=== PATIENT | female | born 1945 | race Caucasian/White ===

== ENCOUNTER 2017-02-14 15:32 | Observation (INO) | payer MEDICARE ==
--- NOTE | 2017-02-14 16:21 | ED PDOC ---
HPI: Hypertension/Hypotension Time Seen by Provider: 02/14/17 15:52 Chief Complaint (Nursing): High Blood Pressure Chief Complaint (Provider): High blood pressure History Per: Patient History/Exam Limitations: no limitations Onset/Duration Of Symptoms: Days Current Symptoms Are (Timing): Still Present Additional Complaint(s): 71-year-old female, PMHx includes Diabetes, Hypertension (non compliant w/ Lisinopril) and Hypercholesterolemia, presents to the emergency department accompanied by daughter with complaints of high blood pressure. Daughter states that patient was in clinic today for a routine f/u appointment, where she was found to be hypertensive, resulting in her being sent to the ED for evaluation. In ED, daughter reports that patient has not taken any blood pressure medication in a few months. Patient currently complaining of lateral left low neck pain. Pt notes an episode of chest pain yesterday, that spontaneously resolved. No numbness/weakness, nausea/vomiting, shortness of breath, dizziness , urinary complaints, incontinence, or any other associated symptoms. No other complaints at this time. Past Medical History Reviewed: Historical Data, Nursing Documentation, Vital Signs Vital Signs: Last Vital Signs Temp 98.7 F 02/14/17 15:37 Pulse 86 02/14/17 15:37 Resp 16 02/14/17 15:37 BP 206/109 H 02/14/17 15:37 Pulse Ox 99 02/14/17 15:37 - Family History Family History: States: Unknown Family Hx - Home Medications Home Medications: Ambulatory Orders Medication Instructions Recorded Lisinopril/Hydrochlorothiazide 1 tab PO DAILY 02/14/17 [Lisinopril-Hydrochlorothiazide 25 mg-20 mg] Rosuvastatin Calcium [Crestor] 20 mg PO DAILY 02/14/17 metFORMIN [glucOPHAGE] 500 mg PO BID 02/14/17 - Allergies Allergies/Adverse Reactions: Allergies Allergy/AdvReac Type Severity Reaction Status Date / Time No Known Allergies Allergy Verified 02/14/17 15:37 Review of Systems ROS Statement: Except As Marked, All Systems Reviewed And Found Negative Constitutional: Negative for: Fever, Chills Cardiovascular: Positive for: Chest Pain. Negative for: Palpitations Respiratory: Negative for: Shortness of Breath Gastrointestinal: Negative for: Nausea, Vomiting Genitourinary Female: Negative for: Dysuria, Frequency Musculoskeletal: Positive for: Neck Pain. Negative for: Back Pain Skin: Negative for: Rash Neurological: Negative for: Weakness, Numbness, Headache, Dizziness Physical Exam - Reviewed Nursing Documentation Reviewed: Yes Vital Signs Reviewed: Yes - Physical Exam Appears: Positive for: Non-toxic, No Acute Distress Head Exam: Positive for: ATRAUMATIC, NORMOCEPHALIC Skin: Positive for: Warm, Dry. Negative for: Rash Eye Exam: Positive for: Normal appearance Neck: Positive for: Painless ROM Respiratory: Positive for: Normal Breath Sounds. Negative for: Accessory Muscle Use, Respiratory Distress Gastrointestinal/Abdominal: Positive for: Soft. Negative for: Tenderness Extremity: Positive for: Normal ROM Neurologic/Psych: Positive for: Alert, Oriented - ECG O2 Sat by Pulse Oximetry: 99 Pulse Ox Interpretation: Normal - Progress ED Course And Treament: 1635: Stable. Dr. Melvin to fu on labs and imaging. Medical Decision Making Medical Decision Making: Plan * EKG * CMP, Trop I * CBC, PTT, PT * Chest X-Ray * Nitroglycerin * Reassess and Disposition Scribe Attestation: Documented by Luz Olson, acting as a scribe for Dominic Vann MD. Provider Scribe Attestation: All medical record entries made by the Scribe were at my direction and personally dictated by me. I have reviewed the chart and agree that the record accurately reflects my personal performance of the history, physical exam, medical decision making, and the department course for this patient. I have also personally directed, reviewed, and agree with the discharge instructions and disposition. Disposition - Clinical Impression Clinical Impression: Hypertension, Chest pain - Patient ED Disposition Is Patient to be Admitted: Transfer of Care - Disposition Disposition: Transfer of Care Disposition Time: 16:35 Condition: STABLE Patient Signed Over To: Say Melvin
[2017-02-14 16:32] LABS: BASO # 0.1 K/uL (0.0-0.2); BASO % 0.8 % (0.0-2.0); EOS # 0.6 K/uL (0.0-0.7); EOS % 7.4 % (0.0-4.0); HEMATOCRIT 40.5 % (34.0-47.0); LYMPH % 24.7 % (20.0-40.0); MEAN CORPUSCULAR HEMOGLOBIN 26.9 pg (27.0-31.0); MEAN CORPUSCULAR HGB CONC 32.1 g/dL (33.0-37.0); MONO # 0.5 K/uL (0.0-0.8); MONO % 6.5 % (0.0-10.0); NEUT % 60.6 % (50.0-75.0); NRBC % 0.1 % (0.0-0.0); RED CELL DISTRIBUTION WIDTH 13.4 % (11.5-14.5); WHITE BLOOD COUNT 8.2 K/uL (4.8-10.8)
[2017-02-14 16:43] LABS: ALB/GLOB RATIO 1.1 (1.0-2.1); ALKALINE PHOSPHATASE 107 U/L (38-126); ALT/SGPT 18 U/L (9-52); AST/SGOT 24 U/L (14-36); BILIRUBIN,TOTAL 1.4 mg/dl (0.2-1.3); BLOOD UREA NITROGEN 24 mg/dl (7-17); CALCIUM 10.7 mg/dL (8.4-10.2); CARBON DIOXIDE 22 mmol/L (22-30); CHLORIDE 111 mmol/L (98-107); GFR AFRICAN-AMERICAN 36; GLUCOSE,RANDOM 107 mg/dL (65-105); POTASSIUM 4.3 MMOL/L (3.6-5.0); SODIUM 148 mmol/l (132-148); TOTAL PROTEIN 8.1 G/DL (6.3-8.2)
[2017-02-14 17:25] LABS: PARTIAL THROMBOPLASTIN TIME 28.2 SECONDS (23.3-32.5)
--- NOTE | 2017-02-14 18:50 | ED PDOC ---
- Laboratory Results Result Diagrams: 02/14/17 16:20 02/14/17 16:20 - ECG O2 Sat by Pulse Oximetry: 98 Pulse Ox Interpretation: Normal - Progress ED Course And Treament: will admit to tele obs Re-evaluation Time: 18:48 Condition: Improved Disposition Counseled Patient/Family Regarding: Studies Performed, Diagnosis, Need For Followup - Clinical Impression Clinical Impression: Hypertension, Chest pain - POA Present On Arrival: None - Disposition Disposition: Hospitalized as Observation Patient Disposition Time: 18:50 Condition: STABLE
[2017-02-14] MEDS ORDERED: Labetalol 5mg/ml (4ml) IVP STA (19:21)
--- NOTE | 2017-02-14 19:33 | CP.PCM.HP ---
History of Present Illness - History of Present Illness History of Present Illness: 71 yo F w PMHx of HTN, HLD, DM, and CKD is admitted for hypertensive urgency within the setting of CKD Stage 3B. She was seen at the [facility] yesterday and found to have a BP of 190/100. Pt denies any current headaches, vision changes, chest pain, sob, dyspnea, cough, or abdominal pain. She does, however, state one episode of chest pain yesterday that is associated w lying down in the evening following a large meal. Pt was accompanied by daughter, who claimed that the patient was complaining of dizziness when ambulating in the clinic earlier and recently in the ED. Otherwise, pt denies f/c/n/v/d/c, hematuria, dysuria, recent sick contacts, or other myalgias. PMD: [facility] Daughter: Glo Duncan [phone] PMHx: HTN, DM, HLD, CKD, Depression PSHx: Cholecystectomy, Breast Nodule NKDA Home Meds (Noncompliant): Rosuvastatin 20, Lisinopril-HCTZ 20-25, Metformin 500 BID FHx: Noncontributory SHx: Denies etoh, illicit drugs, cigarettes ED Course: -CBC -CMP -Troponin STAT x1 -PT/INR/PTT -Nitro SL STAT x1 -CXR -EKG Present on Admission - Present on Admission Any Indicators Present on Admission: No History of DVT/PE: No History of Uncontrolled Diabetes: No Urinary Catheter: No Decubitus Ulcer Present: No Review of Systems - Review of Systems Review of Systems: see HPI Past Patient History - Past Social History Smoking Status: Never Smoked - CARDIAC Hx Hypertension: Yes - ENDOCRINE/METABOLIC Hx Diabetes Insipidus: Yes - PSYCHIATRIC Hx Substance Use: No - SURGICAL HISTORY Hx Cholecystectomy: Yes Meds Allergies/Adverse Reactions: Allergies Allergy/AdvReac Type Severity Reaction Status Date / Time No Known Allergies Allergy Verified 02/14/17 15:37 Physical Exam - Constitutional Appears: Non-toxic, No Acute Distress - Head Exam Head Exam: ATRAUMATIC, NORMAL INSPECTION - Eye Exam Eye Exam: EOMI Pupil Exam: PERRL - ENT Exam ENT Exam: Mucous Membranes Dry - Neck Exam Neck exam: Positive for: Full Rom, Normal Inspection. Negative for: Tenderness - Respiratory Exam Respiratory Exam: Clear to Auscultation Bilateral, NORMAL BREATHING PATTERN. absent: Rhonchi, Wheezes - Cardiovascular Exam Cardiovascular Exam: REGULAR RHYTHM Additional comments: no chest tenderness to palpation - GI/Abdominal Exam GI & Abdominal Exam: Normal Bowel Sounds, Soft. absent: Tenderness - Extremities Exam Extremities exam: Positive for: normal inspection. Negative for: calf tenderness - Neurological Exam Neurological exam: Alert, CN II-XII Intact, Oriented x3 - Psychiatric Exam Psychiatric exam: Anxious, Normal Mood - Skin Skin Exam: Dry, Normal Color, Warm Results - Vital Signs Recent Vital Signs: Last Vital Signs Temp 98.7 F 02/14/17 15:37 Pulse 75 02/14/17 17:44 Resp 20 02/14/17 17:44 BP 160/76 H 02/14/17 17:44 Pulse Ox 98 02/14/17 18:50 - Labs Result Diagrams: 02/14/17 16:20 02/14/17 16:20 Assessment & Plan - Assessment and Plan (Free Text) Plan: 71 yo F w PMHx of HTN, HLD, DM, and CKD is admitted for hypertensive urgency within the setting of CKD Stage 3B 1) HTN Urgency in setting of CKD -Improving, BPs currently in 160s/70s -Troponin Neg x2 -EKG: NSR, no acute abnormalities -Cardiology aware and onboard -Losartan-HCTZ 20-25 PO Daily ---CrCl 35.86; cutoff for above medication is below 30 -Labetolol 20mg IVP STAT x1 -Clonidine 0.1mg PO BID -ASA 81mg PO Daily -Tylenol 650mg PO Q6H PRN mild pain -Morphine 1mg IVP Q6h PRN moderate pain -f/u EKG -f/u Vitals -f/u Cardiac Echo -f/u Cardio recommendations 2) h/o CKD -Currently Stage 3B -GFR 36 -- BUN/Cr 24/1.7 -- CrCl 35.86 -Nephrology aware and onboard -f/u Nephro recommendations 3) DM -Controlled, pt states home readings are 90-120 -Lispro Sliding Scale ACHS -f/u FS ACHS 4) HLD -Rosuvastatin 20mg PO Daily 5) DVT Prophylaxis -SCDs -Will consider additional treatment if hospital stay is extended or indications warrant such therapy
[2017-02-14] MEDS ORDERED: Labetalol 5mg/ml (4ml) ONE (19:36)
[2017-02-15] MEDS ORDERED: Pneumococcal 23-Valent Vaccine IM ONE (06:00)
[2017-02-15] MEDS: Insulin Lispro (humaLOG) 100 Units/ml Inj SC SCH ×3 (07:00→17:09)
[2017-02-15 08:25] VITALS: TEMP 97.7
[2017-02-15 08:37] LABS: HEMATOCRIT 37.9 % (34.0-47.0); MEAN CELL VOLUME 83.4 fl (81.0-99.0); MEAN CORPUSCULAR HEMOGLOBIN 27.1 pg (27.0-31.0); MEAN CORPUSCULAR HGB CONC 32.5 g/dL (33.0-37.0); RED CELL DISTRIBUTION WIDTH 13.1 % (11.5-14.5); WHITE BLOOD COUNT 6.8 K/uL (4.8-10.8)
[2017-02-15] MEDS ORDERED: Patient's Own Med (Lisinopril/Hydrochlorothiazide [Lisinopril-Hctz 20-25 Mg Tab] 1 TAB) PO SCH (09:00)
--- NOTE | 2017-02-15 10:15 | CP.PCM.CON ---
History of Present Illness - History of Present Illness History of Present Illness: Patient is a 71 years old presented to the emergency room with uncontrolled hypertension and headache. Patient is not giving good history what medication might is a long history whether she has history of chronic kidney disease and she stated she was not taking medication for the blood pressure. Also noted that she has hypercalcemia on the routine blood work Her past medical history related to hypertension and diabetes mellitus And no good follow-up as outpatient apparently Social history not contributory Review of Systems - Constitutional Constitutional: As Per HPI, Headache - EENT Eyes: As Per HPI - Cardiovascular Cardiovascular: absent: Chest Pain, Chest Pain at Rest, Pedal Edema - Respiratory Respiratory: absent: Cough, Dyspnea - Gastrointestinal Gastrointestinal: absent: Abdominal Pain, Vomiting - Genitourinary Genitourinary: Nocturia - Musculoskeletal Musculoskeletal: Muscle Weakness - Neurological Neurological: As Per HPI Past Patient History - Past Medical History & Family History Past Medical History?: Yes - Past Social History Smoking Status: Never Smoked - CARDIAC Hx Hypertension: Yes - PULMONARY Hx Respiratory Disorders: No - NEUROLOGICAL Hx Neurological Disorder: No - HEENT Hx HEENT Problems: No - RENAL Hx Chronic Kidney Disease: Yes Other/Comment: Chronic Kidney Disease - ENDOCRINE/METABOLIC Hx Diabetes Insipidus: Yes - HEMATOLOGICAL/ONCOLOGICAL Hx Blood Disorders: No Hx AIDS: No Hx Human Immunodeficiency Virus (HIV): No - INTEGUMENTARY Hx Dermatological Problems: No - MUSCULOSKELETAL/RHEUMATOLOGICAL Hx Musculoskeletal Disorders: No Hx Falls: No - GASTROINTESTINAL Hx Gastrointestinal Disorders: No - GENITOURINARY/GYNECOLOGICAL Hx Genitourinary Disorders: No - PSYCHIATRIC Hx Substance Use: No - SURGICAL HISTORY Hx Cholecystectomy: Yes - ANESTHESIA Hx Anesthesia: Yes Hx Anesthesia Reactions: No Meds Home Medications: Home Medication List Medication Instructions Recorded Confirmed Type GlipiZIDE [Glucotrol] 5 mg PO DAILY #30 tab 02/15/17 Rx Lisinopril/Hydrochlorothiazide 1 tab PO DAILY #30 tablet 02/15/17 Rx [Lisinopril-Hctz 20-25 mg Tab] Rosuvastatin Calcium [Crestor] 20 mg PO DAILY #30 tab 02/15/17 Rx amLODIPine [Norvasc] 5 mg PO DAILY #30 tab 02/15/17 Rx Allergies/Adverse Reactions: Allergies Allergy/AdvReac Type Severity Reaction Status Date / Time No Known Allergies Allergy Verified 02/14/17 15:37 - Medications Medications: Current Medications Acetaminophen (Tylenol 325mg Tab) 650 mg PO Q6 PRN PRN Reason: Pain, Mild (1-3) Aspirin (Aspirin Chewable) 81 mg PO DAILY [facility] Last Admin: 02/15/17 08:23 Dose: 81 mg Atorvastatin Calcium (Lipitor) 40 mg PO DAILY [facility] Last Admin: 02/15/17 08:24 Dose: 40 mg Clonidine HCl (Catapres) 0.1 mg PO BID [facility] Last Admin: 02/15/17 08:23 Dose: 0.1 mg Hydrochlorothiazide (Hydrodiuril) 25 mg PO DAILY [facility] Last Admin: 02/15/17 08:24 Dose: 25 mg Insulin Human Lispro (Humalog) 0 units SC ACHS [facility] PRN Reason: Protocol Last Admin: 02/15/17 07:00 Dose: Not Given Lisinopril (Zestril) 20 mg PO DAILY [facility] Last Admin: 02/15/17 08:25 Dose: 20 mg Morphine Sulfate (Morphine) 1 mg IVP Q6 PRN PRN Reason: Pain, moderate (4-7) Physical Exam - Constitutional Appears: No Acute Distress - Eye Exam Eye Exam: absent: Nystagmus, Periorbital tenderness - ENT Exam ENT Exam: Mucous Membranes Moist - Neck Exam Neck exam: Negative for: Lymphadenopathy - Respiratory Exam Respiratory Exam: NORMAL BREATHING PATTERN. absent: Chest Wall Tenderness - Cardiovascular Exam Cardiovascular Exam: REGULAR RHYTHM. absent: Rubs - GI/Abdominal Exam GI & Abdominal Exam: Normal Bowel Sounds. absent: Distended - Extremities Exam Extremities exam: Negative for: calf tenderness - Back Exam Back exam: absent: CVA tenderness (L), CVA tenderness (R) - Neurological Exam Neurological exam: Alert Results - Vital Signs Recent Vital Signs: Last Vital Signs Temp 97.7 F 02/15/17 08:24 Pulse 60 02/15/17 09:00 Resp 20 02/15/17 08:24 BP 133/76 02/15/17 08:25 Pulse Ox 99 02/15/17 08:24 - Labs Result Diagrams: 02/15/17 08:18 02/14/17 16:20 Labs: Laboratory Results - last 24 hr 02/15/17 02/15/17 02/15/17 01:00 05:32 08:18 WBC 6.8 RBC 4.55 Hgb 12.3 Hct 37.9 MCV 83.4 MCH 27.1 MCHC 32.5 L RDW 13.1 Plt Count 202 POC Glucose (mg/dL) 115 H Troponin I < 0.0120 < 0.0120 Assessment & Plan (1) Chronic kidney disease, stage III (moderate) Assessment and Plan: Patient appears to have CK D stage III from the history. Admitted with high blood pressure she was not taking her medication. At the present patient started on clonidine lisinopril and hydrochlorothiazide and the blood pressure is very well controlled. So continue the same. Hypercalcemia I'm not sure of this patient taken any vitamin D or calcium supplement as outpatient however we will order to do PTH and phosphorus. Also note urinalysis yet we will order urine and if there is a protein and microalbuminuria we have to do quantitative. Status: Acute
--- NOTE | 2017-02-15 10:18 | RAD ---
HISTORY: Unspecified pain COMPARISON: No prior. FINDINGS: LUNGS: No active pulmonary disease. PLEURA: No significant pleural effusion identified, no pneumothorax apparent. CARDIOVASCULAR: No radiographic findings to suggest acute or significant cardiovascular disease. OSSEOUS STRUCTURES: No significant abnormalities. VISUALIZED UPPER ABDOMEN: Normal. OTHER FINDINGS: None. IMPRESSION: No active disease.
[2017-02-15 11:02] LABS: CALCIUM 10.3 mg/dL (8.4-10.2); POTASSIUM 4.6 MMOL/L (3.6-5.0)
--- NOTE | 2017-02-15 12:31 | CON ---
DATE: 02/15/2017 HISTORY OF PRESENT ILLNESS: The patient is a 71-year-old female who has a history of hypert ension, otherwise no known cardiac history according to the patient. The patient also has a history of diabetes mellitus and hyperlipidemia. She was brought in to the hospital by her daughter after th e patient was found to be uncontrollably hypertensive in a clinic. The patient did report 1 episode of chest pain that was nonradiating and not associated with shortness of breath. The patient cannot describe the character of her chest pain. SOCIAL HISTORY: Nonsmoker, nondrinker. MEDICATIONS: Aspirin 81 mg once a day, clonidine 0.1 mg twice a day, hydrochlorothiazide 25 mg once a day, Lipitor 40 mg once a day and Zestril 20 mg once a day. PAST MEDICAL HISTORY: Hypertension, diabetes mellitus, hyperlipidemia and cholecystectomy. PHYSICAL EXAMINATION: GENERAL: The patient is an elderly female who does not appear to be in any distress. VITAL SIGNS: Blood pressure 133/76, heart rate 60, temperature 97.7, respirations 20. HEENT: Normocephalic. NECK: No JVD. CHEST: Clear. HEART: S1, S2 regular. ABDOMEN: Soft. EXTREMITIES: No edema. LABORATORY DATA: CBC: WBC 6.8, hemoglobin 12.3, hematocrit 37.9, platelet count 202,000. PT, PTT a re within normal limits. SMA-7: Sodium 147, potassium 4.6, chloride 110, CO2 23, glucose 120, BUN 2 6, creatinine 1.7. Calcium is elevated at 10.3. Two sets of troponins are negative. EKG revealed n ormal sinus rhythm. ASSESSMENT: 1. Uncontrolled hypertension. 2. Chest pain, myocardial infarction is ruled out. 3. Diabetes mellitus. 4. Hyperlipidemia by history. RECOMMENDATIONS: Continue current aspirin, clonidine, hydrochlorothiazide, Lipitor and Zestril. I d id order an echocardiogram. aDgoberto Oliva MD cc: [id number] TT: 02/15/2017 12:30:13 Confirmation # [id number] Dictation # [id number]
[2017-02-15 15:45] VITALS: BP 124/69; PULSE 60; RESP 18; O2SAT 99
--- NOTE | 2017-02-15 16:43 | CP.PCM.DIS ---
Provider - Provider Date of Admission: 02/14/17 18:36 Attending physician: Robert Winter MD Primary care physician: Cora Leavitt MD Time Spent in preparation of Discharge (in minutes): 30 Diagnosis - Discharge Diagnosis (1) Hypertensive urgency Status: Acute Hospital Course - Lab Results Lab Results: Most Recent Lab Values WBC 6.8 K/uL (4.8-10.8) 02/15/17 08:18 RBC 4.55 Mil/uL (3.80-5.20) 02/15/17 08:18 Hgb 12.3 g/dL (12.0-16.0) 02/15/17 08:18 Hct 37.9 % (34.0-47.0) 02/15/17 08:18 MCV 83.4 fl (81.0-99.0) 02/15/17 08:18 MCH 27.1 pg (27.0-31.0) 02/15/17 08:18 MCHC 32.5 g/dL (33.0-37.0) L 02/15/17 08:18 RDW 13.1 % (11.5-14.5) 02/15/17 08:18 Plt Count 202 K/uL (130-400) 02/15/17 08:18 MPV 8.0 fl (7.2-11.7) 02/14/17 16:20 Neut % (Auto) 60.6 % (50.0-75.0) 02/14/17 16:20 Lymph % (Auto) 24.7 % (20.0-40.0) 02/14/17 16:20 [place] % (Auto) 6.5 % (0.0-10.0) 02/14/17 16:20 Eos % (Auto) 7.4 % (0.0-4.0) H 02/14/17 16:20 Baso % (Auto) 0.8 % (0.0-2.0) 02/14/17 16:20 Neut # 5.0 K/uL (1.8-7.0) 02/14/17 16:20 Lymph # 2.0 K/uL (1.0-4.3) 02/14/17 16:20 [place] # 0.5 K/uL (0.0-0.8) 02/14/17 16:20 Eos # 0.6 K/uL (0.0-0.7) 02/14/17 16:20 Baso # 0.1 K/uL (0.0-0.2) 02/14/17 16:20 PT 10.6 SECONDS (9.6-11.2) 02/14/17 16:20 INR 1.02 (0.92-1.08) 02/14/17 16:20 APTT 28.2 SECONDS (23.3-32.5) 02/14/17 16:20 Sodium 147 mmol/l (132-148) 02/15/17 06:00 Potassium 4.6 MMOL/L (3.6-5.0) 02/15/17 06:00 Chloride 110 mmol/L (98-107) H 02/15/17 06:00 Carbon Dioxide 23 mmol/L (22-30) 02/15/17 06:00 Anion Gap 19 (10-20) 02/15/17 06:00 BUN 26 mg/dl (7-17) H 02/15/17 06:00 Creatinine 1.7 mg/dL (0.7-1.2) H 02/15/17 06:00 Est GFR ( Amer) 36 02/15/17 06:00 Est GFR (Non-Af Amer) 30 02/15/17 06:00 POC Glucose (mg/dL) 119 mg/dL (65-110) H 02/15/17 15:36 Random Glucose 120 mg/dL (65-105) H 02/15/17 06:00 Calcium 10.3 mg/dL (8.4-10.2) H 02/15/17 06:00 Phosphorus 3.3 mg/dl (2.5-4.5) 02/15/17 10:11 Total Bilirubin 1.4 mg/dl (0.2-1.3) H 02/14/17 16:20 AST 24 U/L (14-36) 02/14/17 16:20 ALT 18 U/L (9-52) 02/14/17 16:20 Alkaline Phosphatase 107 U/L (38-126) 02/14/17 16:20 Troponin I < 0.0120 ng/mL (0.00-0.120) 02/15/17 08:18 Total Protein 8.1 G/DL (6.3-8.2) 02/14/17 16:20 Albumin 4.2 g/dL (3.5-5.0) 02/14/17 16:20 Globulin 3.8 gm/dL (2.2-3.9) 02/14/17 16:20 Albumin/Globulin Ratio 1.1 (1.0-2.1) 02/14/17 16:20 - Hospital Course Hospital Course: The patient is a 71 y/o woman w/ PMHx of HTN, HLD, DM, and CKD is admitted for hypertensive urgency within the setting of CKD Stage 3B. She was seen at the [facility] yesterday and found to have a BP of 190/100. Patient denies any current headaches, vision changes, chest pain, sob, dyspnea, cough, or abdominal pain. She does, however, state one episode of chest pain yesterday that is associated w/ lying down in the evening following a large meal. Patient was accompanied by daughter, who claimed that the patient was complaining of dizziness when ambulating in the clinic earlier and recently in the ED. Otherwise, patient denies fever, chills, nausea, vomiting, diarrhea, constipation, hematuria, dysuria, recent sick contacts, or other myalgias. The patient was given nitro in the ED. CBC, CMP, and coags were WNL. Troponins were negative x3. CXR and EKG were WNL with no acute disease processes. Patient was seen by nephrology due to CKD stage 3B. Labs ordered but can be followed as outpatient due to chronic condition. Patient had echocardiogram done. Patient seen by cardiology. Awaiting clearance by cardiology. Cardiology was contacted but no reply was received regarding blood pressure control outpatient. Patient to be discharged due to stabilized blood pressures with follow up at [facility] with Dr. Rodriguez. The patient was seen, examined, and deemed medically fit with no contraindication for discharge home. Patient discharged on lisinopril/HCTZ 20- 25 mg PO daily, amlodipine 5 mg PO daily, glipizide 2.5 mg PO daily, and rosuvastatin 20 mg PO daily; metformin discontinued due to CKD stage 3B. - Date & Time of H&P Date of H&P: 02/14/17 Time of H&P: 19:33 Discharge Exam - Head Exam Head Exam: ATRAUMATIC, NORMAL INSPECTION Discharge Plan - Discharge Medications Prescriptions: Rosuvastatin Calcium [Crestor] 20 mg PO DAILY #30 tab GlipiZIDE [Glucotrol] 5 mg PO DAILY #30 tab Lisinopril/Hydrochlorothiazide [Lisinopril-Hctz 20-25 mg Tab] 1 tab PO DAILY # 30 tablet amLODIPine [Norvasc] 5 mg PO DAILY #30 tab - Follow Up Plan Condition: STABLE Disposition: HOME/ ROUTINE Referrals: Cait Rodriguez MD [Resident] - Cora Leavitt MD [Primary Care Provider] -
--- NOTE | 2017-02-15 17:54 | CARD ---
APPROVED REPORT EXAM: Two-dimensional and M-mode echocardiogram with Doppler and color Doppler. Other Information Quality : GoodRhythm : NSR INDICATION Hypertension/HCVD 2D DIMENSIONS IVSd0.98 (0.7-1.1cm)LVDd4.68 (3.9-5.9cm) LVOT Diameter2.06 (1.8-2.4cm)PWd0.84 (0.7-1.1cm) IVSs1.39 (0.8-1.2cm)LVDs2.98 (2.5-4.0cm) FS (%) 36.3 %PWs1.35 (0.8-1.2cm) LVEF (%)65.0 (>50%) M-Mode DIMENSIONS Left Atrium (MM)4.19 (2.5-4.0cm)IVSd1.56 (0.7-1.1cm) Aortic Root2.31 (2.2-3.7cm)LVDd4.25 (4.0-5.6cm) Aortic Cusp Exc.1.69 (1.5-2.0cm)PWd1.13 (0.7-1.1cm) IVSs1.91 cmFS (%) 40 % LVDs2.53 (2.0-3.8cm)PWs1.47 cm Mitral Valve MV E Dexzyijj49.3cm/sMV DECEL [id number] A Eabjuude49.7cm/s MV UTL76gfL/A ratio0.9MVA (PHT)2.58cm2 TDI Lateral E' Peak V4.64cm/sMedial E' Peak V5.30cm/sE/Lateral E'12.3 E/Medial E'10.8 Pulmonary Valve PV Peak Fyjhwcye46.7cm/s Tricuspid Valve TR Peak Ddixacyx521vf/sRAP [id number] Peak Gr.19mmHg [id number] LEFT VENTRICLE The left ventricle is normal size. There is mild concentric left ventricular hypertrophy. The left ventricular function is normal. The left ventricular ejection fraction is within the normal range. There is normal LV segmental wall motion. Transmitral Doppler flow pattern is Grade I-abnormal relaxation pattern. RIGHT VENTRICLE The right ventricle is normal size. There is normal right ventricular wall thickness. The right ventricular systolic function is normal. ATRIA The left atrium size is normal. The right atrium size is normal. AORTIC VALVE The aortic valve is not well visualized. No aortic regurgitation is present. There is no aortic valvular stenosis. MITRAL VALVE The mitral valve is moderately thickened. There is no mitral valve stenosis. Mitral regurgitation is trace. TRICUSPID VALVE The tricuspid valve is normal in structure There is trace tricuspid regurgitation. PULMONIC VALVE The pulmonary valve is normal in structure and function. There is no pulmonic valvular regurgitation. GREAT VESSELS The aortic root is normal in size. The IVC is normal in size and collapses >50% with inspiration. PERICARDIAL EFFUSION There is a trace loculated anterior pericardial effusion. <Conclusion> The left ventricle is normal size. There is mild concentric left ventricular hypertrophy. The left ventricular function is normal. The left ventricular ejection fraction is within the normal range. There is normal LV segmental wall motion. Transmitral Doppler flow pattern is Grade I-abnormal relaxation pattern. There is a trace loculated anterior pericardial effusion.
--- NOTE | 2017-02-15 21:29 | CARD ---
APPROVED REPORT EKG Measurement Heart [id number] <Conclusion> Normal sinus rhythm Normal ECG
--- NOTE | 2017-02-15 21:33 | CARD ---
APPROVED REPORT EKG Measurement Heart [id number] <Conclusion> Normal sinus rhythm Normal ECG
== END 2017-02-15 18:45 | disposition home or self-care (01) ==
LOC: H.ER 15:32 → H.ERHOLD 18:36 → H.TEL 21:20
PROVIDERS: ADMIT Family Medicine; ATTEND Family Medicine
DX: I16.0 Hypertensive urgency (principal); I12.9 Hypertensive chronic kidney disease with stage 1 through stage 4 chronic kidney disease, or unspecified chronic kidney disease; N18.3 Chronic kidney disease, stage 3 (moderate); E11.22 Type 2 diabetes mellitus with diabetic chronic kidney disease; E78.5 Hyperlipidemia, unspecified; E83.52 Hypercalcemia; Z91.14 Patient's other noncompliance with medication regimen; F32.9 Major depressive disorder, single episode, unspecified; R07.9 Chest pain, unspecified; E78.00 Pure hypercholesterolemia, unspecified; Z23 Encounter for immunization
CPT/HCPCS: 36415; 71010; 80048; 80053; 82948; 83970; 84100; 84484; 85025; 85027; 85610; 85730; 90732; 93005; 93306; 96374; 99285; G0009; G0378